=== PATIENT | male | born 1950 | race Caucasian/White ===

== ENCOUNTER 2016-07-12 15:53 | Emergency (ER) | payer OTHER ==
[~2016-07-12] VITALS: Ht 177.8 cm; Wt 95.3 kg
[2016-07-12 16:33] VITALS: BP 165/89
--- NOTE | 2016-07-12 18:08 | NUR ---
PATIENT PUT ON OF PER DR. GIBBONS
--- NOTE | 2016-07-12 18:21 | NUR ---
PATIENT TO LOBBY VIA W/C
[2016-07-12] MEDS ORDERED: NACL 0.9% 1,000 ML IV ONE (19:58)
--- NOTE | 2016-07-12 22:35 | NUR ---
TO ER BED 8
--- NOTE | 2016-07-12 22:47 | NUR ---
PT BIBA WITH C/O BL FOOT PAIN 7/10 SWELLING HX; DM, NEUROPATHY RX; METFORMIN DENIES N/V/D; SKIN IS PINK/WARM/DRY; AAOX4 WITH EVEN AND STEADY GAIT; LUNGS CLEAR BL; HR EVEN AND REGULAR; PT DENIES ANY FEVER, CP, SOB, OR COUGH AT THIS TIME; PATIENT STATES PAIN OF 5/10 AT THIS TIME; VSS; PATIENT POSITIONED FOR COMFORT; HOB ELEVATED; BEDRAILS UP X2; BED DOWN. ER MD MADE AWARE OF PT STATUS.
[2016-07-12] MEDS ORDERED: KETOROLAC 30 MG/ML VIAL IM ONE (23:05)
[2016-07-12 23:20] VITALS: BP 146/88
== END 2016-07-12 23:20 | disposition home or self-care (01) ==
LOC: MED 15:53
DX: M79.672 Pain in left foot (principal); M79.671 Pain in right foot; F19.90 Other psychoactive substance use, unspecified, uncomplicated; E11.9 Type 2 diabetes mellitus without complications; I10 Essential (primary) hypertension; Z90.89 Acquired absence of other organs
CPT/HCPCS: 36415; 71010; 80053; 82948; 83605; 83690; 83880; 84484; 85025; 85610; 87040; 96372; 99285; J1885; J7030